=== PATIENT | male | born 1980 | race Caucasian/White ===

== ENCOUNTER 2017-07-12 20:49 | Emergency (ER) | payer OTHER ==
--- NOTE | 2017-07-12 21:00 | ED Physician Documentation ---
General Adult - HISTORIAN Historian: patient - HPI Stated Complaint: back pain Chief Complaint: General Adult Onset: hours Timing: still present Severity: moderate Further Comments: yes (Pt is a 37 yo male with back pain. Pain came on suddenly while pt was standing cooking. Pt has had similar back pain in the past, "but not this bad," after he had been lifting things.) - ROS CONST: no problems EYES/ENT: none CVS/RESP: none GI/: none MS/SKIN/LYMPH: other (back pain) - PAST HX Past History: none Allergies/Adverse Reactions: Allergies Allergy/AdvReac Type Severity Reaction Status Date / Time No Known Allergies Allergy Verified 07/12/17 20:58 Home Medications: Ambulatory Orders Medication Instructions Recorded NK [NK] 07/12/17 - SOCIAL HX Smoking History: cigarettes - FAMILY HX Family History: No - VITAL SIGNS Vital Signs: Vital Signs Temp Pulse Resp BP Pulse Ox 107/75 08/25/12 00:50 - REVIEWED ASSESSMENTS Nursing Assessment Reviewed: Yes Vitals Reviewed: Yes Progress - Progress Progress: Toradol 60 mg IM Norflex 60 mg IM General Adult Physical Exam - PHYSICAL EXAM GENERAL APPEARANCE: moderate distress NECK: normal inspection, supple RESPIRATORY: no resp distress, chest non-tender, breath sounds normal CVS: reg rate & rhythm, heart sounds normal BACK: normal inspection, other (L sided muscle spasm, para-lumbar; no pain over spine) SKIN: warm/dry, normal color EXTREMITIES: non-tender, normal range of motion, no evidence of injury NEURO: oriented X3, motor nml, sensation nml, other (DTR's wnl) Discharge Clincal Impression: back pain/muscle spasm Referrals: Praveen Colindres DO [STAFF PHYSICIAN] - Condition: Good Disposition: 01 HOME, SELF-CARE Decision to Admit: NO Decision Time: 21:57
[2017-07-12] MEDS: (BACK ORDERED; DO NOT ORDER) DIAZEPAM 5 MG/ML DISP.SYRIN IM ONE (21:13)
[2017-07-12] MEDS: ORPHENADRINE CITRATE 60 MG/2ML IM ONE (21:13)
[2017-07-12] MEDS: KETOROLAC TROMETHAMINE 60 MG/2 ML VIAL IM ONE (21:13)
[2017-07-12] MEDS: ORPHENADRINE CITRATE 60 MG/2ML ONE (21:13)
[2017-07-12 22:03] VITALS: BP 138/72
== END 2017-07-12 22:02 | disposition home or self-care (01) ==
LOC: ED 20:49
DX: M54.5 Low back pain (principal); M62.830 Muscle spasm of back
CPT/HCPCS: 96372; 99282; J1885; J2360

== ENCOUNTER 2017-08-11 10:26 | Outpatient (CLI) | payer OTHER | END 2017-08-11 10:28 | LOC: LAB 10:26 | PROVIDERS: ATTEND Family Medicine | DX: Z02.83 Encounter for blood-alcohol and blood-drug test (principal) | CPT/HCPCS: 80377; G0481 ==